=== PATIENT | male | born 2000 | race Caucasian/White ===

== ENCOUNTER 2022-01-29 22:03 | Emergency (ER) | payer OTHER ==
[2022-01-29] MEDS ORDERED: SODIUM CHLORIDE 0.9% 1,000 ML IV STA (22:28)
[2022-01-29 22:33] LABS: BASOPHILS # (AUTO) 0.1 10^3/uL (0.0-0.1); BASOPHILS % (AUTO) 0.6 %; EOSINOPHILS # (AUTO) 0.4 10^3/uL (0.0-0.7); EOSINOPHILS % (AUTO) 4.9 %; HCT - HEMATOCRIT 42.4 % (42.0-52.0); HGB - HEMOGLOBIN 14.3 g/dL (14.0-18.0); LYMPHOCYTES % (AUTO) 45.7 %; MEAN CORPUSCULAR HEMOGLOBIN 27.8 pg (27.0-31.0); MEAN CORPUSCULAR HGB CONC 33.7 g/dL (32.0-36.0); MEAN CORPUSCULAR VOLUME 82.3 fL (80.0-94.0); MEAN PLATELET VOLUME 9.4 fL (7.4-11.4); MONOCYTES # (AUTO) 0.7 10^3/uL (0.0-1.0); MONOCYTES % (AUTO) 7.6 %; NEUTROPHILS # (AUTO) 3.6 10^3/uL (1.5-6.6); PLT - PLATELET COUNT 315 10^3/uL (130-450); RED BLOOD COUNT 5.15 10^6/uL (4.70-6.10); RED CELL DISTRIBUTION WIDTH 12.4 % (12.0-15.0); WHITE BLOOD COUNT 8.8 x10^3/uL (4.8-10.8)
[2022-01-29 22:59] LABS: CALCIUM 9.3 mg/dL (8.5-10.3); CREATININE 1.2 mg/dL (0.6-1.2); MAGNESIUM 2.1 mg/dL (1.7-2.8); POTASSIUM 3.5 mmol/L (3.5-5.0)
--- NOTE | 2022-01-29 23:05 | XRAY Report ---
PROCEDURE: Chest 1 View X-Ray INDICATIONS: palpitations TECHNIQUE: One view of the chest was acquired. COMPARISON: None FINDINGS: Surgical changes and devices: None. Lungs and pleura: No pleural effusions or pneumothorax. Lungs are clear. Mediastinum: Mediastinal contours appear normal. Heart size is normal. Bones and chest wall: No suspicious bony lesions. Overlying soft tissues appear unremarkable. IMPRESSION: No acute cardiopulmonary disease process. Reviewed by: Kaitlin Patterson MD, PhD on 01/29/2022 11:04 PM PDT Approved by: Kaitlin Patterson MD, PhD on 01/29/2022 11:04 PM PDT Station ID: [id number]
--- NOTE | 2022-01-30 00:13 | ED Physician Documentation ---
PD HPI CHEST PAIN - Stated complaint Stated Complaint: CHEST PAIN, CARDO AREA - Chief complaint Chief Complaint: Cardiac - History obtained from History obtained from: Patient - Additional information Additional information: Patient presenting for evaluation of intermittent palpitations since Sunday. Patient reports history of Covid in November and at that time had palpitations which resolved. He is unsure how the how often he gets these episodes but feels it is a few times a day and they are very brief, lasting only a few seconds and resolving on their own. He denies any associated symptoms with these episodes of palpitations such as chest pain, dizziness, syncope, difficulty breathing. He describes these palpitations as an "adrenaline montesinos". He denies recent caffeine use. He denies alcohol and drug use. Review of Systems Ten Systems: 10 systems reviewed and negative Constitutional: denies: Fever Nose: denies: Rhinorrhea / runny nose Cardiac: reports: Palpitations. denies: Chest pain / pressure Respiratory: denies: Dyspnea, Cough GI: denies: Abdominal Pain, Vomiting : denies: Unable to Void Skin: denies: Rash Neurologic: denies: Syncope PD PAST MEDICAL HISTORY - Allergies Allergies/Adverse Reactions: Allergies Allergy/AdvReac Type Severity Reaction Status Date / Time No Known Drug Allergies Allergy Verified 01/29/22 22:08 PD ED PE NORMAL - General General: Alert and oriented X 3, No acute distress, Well developed/nourished - HEENT HEENT: Atraumatic, Moist mucous membranes, Pharynx benign - Neck Neck: Supple, no meningeal sign - Cardiac Cardiac: RRR, No murmur, No gallop, No rub, Strong equal pulses - Respiratory Respiratory: No respiratory distress, Clear bilaterally - Abdomen Abdomen: Normal bowel sounds, Soft, Non tender, Non distended - Derm Derm: Normal color, No rash - Extremities Extremities: No deformity, No edema - Neuro Neuro: Alert and oriented X 3, Normal speech - Psych Psych: Normal mood, Normal affect Results - Vitals Vitals: Vital Signs - 24 hr 01/29/22 01/29/22 01/29/22 22:08 22:12 23:51 Temperature 36.5 C Heart Rate 64 54 L 54 L Respiratory 16 16 16 Rate Blood Pressure 146/81 H 144/67 H 130/75 O2 Saturation 98 100 99 01/30/22 00:20 Temperature Heart Rate 54 L Respiratory 16 Rate Blood Pressure 128/76 O2 Saturation 100 Oxygen O2 Source Room air - EKG (time done) 2214 Rate: Rate (enter#) (56) Rhythm: Sinus bradycardia Intervals: Other (QTC 400) QRS: Normal Ischemia: No: ST elevation c/w ischemia - Labs Labs: Laboratory Tests 01/29/22 01/29/22 01/29/22 22:25 22:45 22:45 WBC 8.8 RBC 5.15 Hgb 14.3 Hct 42.4 MCV 82.3 MCH 27.8 MCHC 33.7 RDW 12.4 Plt Count 315 MPV 9.4 Neut # (Auto) 3.6 Lymph # (Auto) 4.0 H Bennett # (Auto) 0.7 Eos # (Auto) 0.4 Baso # (Auto) 0.1 Absolute Nucleated RBC 0.00 Nucleated RBC % 0.0 Sodium 138 Potassium 3.5 Chloride 102 Carbon Dioxide 26 Anion Gap 10.0 BUN 21 H Creatinine 1.2 Estimated GFR (MDRD) 76 L Glucose 134 H Calcium 9.3 Magnesium 2.1 TSH 3.35 PD MEDICAL DECISION MAKING - ED course ED course: Patient presenting for evaluation of palpitations. Initial vital signs are stable. PERC negative. EKG demonstrates a sinus bradycardic rhythm.Labs reviewed without significant abnormality. No events on residential monitor. No chest pain to suggest ACS and patient without risk factors for coronary artery disease.Patient is asymptomatic here. No pain to suggest a dissection.Discussed need for follow-up with his primary care doctor and possibly a referral to polyethylene bag machine operator. Patient aware of strict return precautions should he develop any associated symptoms with his palpitations. Departure - Departure Disposition: 01 Home, Self Care Clinical Impression: Palpitation Condition: Stable Instructions: ED Palpitations Comments: The exact cause of your palpitations is unclear. Your EKG which evaluates your heart rhythm was normal today. Your labs were also normal. Please follow-up with your primary care doctor. You may need to be referred to a polyethylene bag machine operator or have a longer heart monitor on to capture these episodes. If you develop any symptoms with these episodes such as chest pain, feeling dizzy, lightheaded having trouble breathing or passing out, return immediately to the emergency department. Discharge Date/Time: 01/30/22 00:21
[2022-01-30 00:21] VITALS: BP 128/76
== END 2022-01-30 00:21 | disposition home or self-care (01) ==
LOC: ED 22:03
DX: R00.2 Palpitations (principal); R07.9 Chest pain, unspecified
CPT/HCPCS: 36415; 80048; 83735; 84443; 85025; 93005; 99284